=== PATIENT | male | born 1970 | race Caucasian/White ===

== ENCOUNTER 2016-12-08 01:48 | Emergency (ER) | payer OTHER ==
--- NOTE | 2016-12-08 02:15 | ED.PDOC ---
History of Present Illness - General Chief Complaint: Cardiovascular Problem Stated Complaint: chest pain Time Seen by Provider: 12/08/16 01:59 Source: patient, RN notes reviewed, Vital Signs reviewed, EMS Exam Limitations: intoxication - History of Present Illness Initial Comments: Patient comes in with c/o chest pain that "hurts pretty bad" for several weeks. The pain is worsened by swallowing and deep breathing. Pain goes from his L chest to his L arm and down his whole L side. + EtoH use today. Timing/Duration: constant - for weeks Severity/Quality: severe, sharp Location: substernal Chest Pain Radiation: other - L arm and L leg, "whole left side" Activities at Onset: emotional stress - going through a divorce Prior Chest Pain/Cardiac Workup: no prior cardiac workup Improving Factors: nothing Worsening Factors: other - swallowing and deep breathing Nitro Today/Relief: no nitro taken today Aspirin Treatment Today: no aspirin today Associated Symptoms: denies symptoms Allergies/Adverse Reactions: Allergies NO KNOWN ALLERGY Allergy (Verified 12/08/16 02:10) Home Medications: Ambulatory Orders Nexium 40 12/08/16 Pantoprazole Tablet [Protonix] 40 mg PO ACBK #30 tab 12/08/16 Review of Systems - Review of Systems Constitutional: States: no symptoms reported Respiratory: States: no symptoms reported Cardiology: States: see HPI, chest pain Gastrointestinal/Abdominal: States: no symptoms reported Musculoskeletal: States: no symptoms reported Skin: States: no symptoms reported Neurological: States: no symptoms reported All other Systems: No Change from Baseline Past Medical History (General) - Patient Medical History Hx Seizures: No Hx Stroke: No Hx Dementia: No Hx Asthma: No Hx of COPD: No Hx Cardiac Disorders: No Hx Congestive Heart Failure: No Hx Pacemaker: No Hx Hypertension: No Hx Thyroid Disease: No Hx Diabetes: No Hx Gastroesophageal Reflux: No Hx Renal Disease: No Hx of HIV: No Hx MRSA: Yes - Arm 2004; Leg 2009 Surgical History: appendectomy - Vaccination History Hx Tetanus, Diphtheria Vaccination: - unknown Hx Influenza Vaccination: No Hx Pneumococcal Vaccination: No - Social History Hx Tobacco Use: No Hx Alcohol Use: Yes Hx Substance Use: No Hx Substance Use Treatment: No Hx Depression: No Hx Physical Abuse: No Hx Emotional Abuse: No - Female History Patient : No Family Medical History - Family History Mother Family History: Unknown Living Status: Physical Exam - Physical Exam General Appearance: Restless, Other - Intoxicated Neck: supple, normal inspection Respiratory: lungs clear, normal breath sounds, no respiratory distress, no accessory muscle use, other - Pain with deep breath and with palpation of anterior chest Cardiovascular/Chest: regular rate, rhythm, no gallop, no JVD, no murmur Gastrointestinal/Abdominal: normal bowel sounds, non tender, soft, no organomegaly, no pulsatile mass Neurologic: other - Intoxicated Skin Exam: normal color, warm/dry Comments: Vital Signs 12/08/16 12/08/16 01:50 02:04 Temperature 97.5 F L Pulse Rate 89 Pulse Rate [ 89 89 monitor] Respiratory 12 12 Rate Blood Pressure 124/90 [Right Arm] O2 Sat by Pulse 95 Oximetry Progress - Progress Progress: 12/08/16 05:59 2 sets of cardiac enzymes are normal. Suspect chest pain is esophageal since swallowing makes it worse. When up to bath room he ripped out his IV. Banana bag given already so will not restart IV. Will give Protonix 40mg PO here. 12/08/16 06:04 Patient is much more alert. Reports he is feeling much better Will plan to d/c home with Rx for Protonix and instructions to stop drinking alcohol and follow up with GI. - Results/Orders Results/Orders: Laboratory Tests 12/08/16 12/08/16 12/08/16 02:00 02:00 02:00 WBC 7.5 RBC 4.77 Hgb 13.7 L Hct 40.8 L MCV 85.6 MCH 28.7 MCHC 33.6 RDW 14.0 Plt Count 383 MPV 7.4 Absolute Neuts (auto) 4.70 Absolute Lymphs (auto) 1.90 Absolute Monos (auto) 0.50 Absolute Eos (auto) 0.40 Absolute Basos (auto) 0.10 Neutrophils % 62.5 Lymphocytes % 25.9 Monocytes % 6.0 Eosinophils % 4.7 Basophils % 0.9 Sodium 138 Potassium 4.1 Chloride 107 Carbon Dioxide 22 Anion Gap 13.1 BUN 10 Creatinine 0.92 BUN/Creatinine Ratio 10.9 Random Glucose 92 Serum Osmolality 274.4 L Calcium 8.7 Total Bilirubin 0.3 AST 28 ALT 17 Alkaline Phosphatase 59 Creatine Kinase 352 H* CK-MB (CK-2) 4.1 CK-MB (CK-2) % Not Reportable Troponin I < 0.02 Serum Total Protein 7.6 Albumin 4.4 Globulin 3.2 Albumin/Globulin Ratio 1.4 Ethyl Alcohol 258.20 H* 12/08/16 12/08/16 04:55 04:55 WBC RBC Hgb Hct MCV MCH MCHC RDW Plt Count MPV Absolute Neuts (auto) Absolute Lymphs (auto) Absolute Monos (auto) Absolute Eos (auto) Absolute Basos (auto) Neutrophils % Lymphocytes % Monocytes % Eosinophils % Basophils % Sodium Potassium Chloride Carbon Dioxide Anion Gap BUN Creatinine BUN/Creatinine Ratio Random Glucose Serum Osmolality Calcium Total Bilirubin AST ALT Alkaline Phosphatase Creatine Kinase 299 H* CK-MB (CK-2) 3.9 CK-MB (CK-2) % 1.30 Troponin I < 0.02 Serum Total Protein Albumin Globulin Albumin/Globulin Ratio Ethyl Alcohol 201.60 H* - EKG/XRAY/CT EKG: Sinus, nonspecific ST T wave Chg Comments: Rate 87 bpm XRAY: chest - No acute process per Rad Departure - Departure Clinical Impression: Alcohol abuse Chest pain Qualifiers: Chest pain type: unspecified Qualified Code(s): R07.9 - Chest pain, unspecified Time of Disposition: 06:08 Disposition: Discharge to Home or Self Care Condition: Fair Departure Forms: ED Discharge - Pt. Copy, Patient Portal Self Enrollment Instructions: DI for Chest Pain, DI for Alcohol Abuse and Alcoholism Diet: resume usual diet Activity: increase activity as tolerated Referrals: Rajinder Rodrigues MD [Consulting Staff] - 1-2 Weeks Prescriptions: Pantoprazole Tablet [Protonix] 40 mg PO ACBK #30 tab Home Medications: Ambulatory Orders Nexium 40 12/08/16 Pantoprazole Tablet [Protonix] 40 mg PO ACBK #30 tab 12/08/16 Additional Instructions: Follow up with your PCP within 1 week Take Protonix daily STOP DRINKING ALCOHOL!!!
[2016-12-08] MEDS ORDERED: SODIUM CHLORIDE 0.9% 1000ML 1,000 ML ONE (02:18)
[2016-12-08] MEDS ORDERED: MULTIPLE VITAMIN 10 ML VIAL ONE (02:18)
[2016-12-08] MEDS ORDERED: THIAMINE HCL INJ 100 MG/ML VIAL ONE (02:18)
[2016-12-08] MEDS ORDERED: MULTIPLE VITAMIN INJ 10 ML, THIAMINE HCL INJ 100 MG in SODIUM CHLORIDE 0.9% 1000ML 1,00... IVS SCH (02:30)
--- NOTE | 2016-12-08 03:46 | RAD ---
EXAM DESCRIPTION: Chest,1 View CLINICAL HISTORY: chest pain COMPARISON: 07/17/2014 FINDINGS: Single frontal view of the chest. The cardiomediastinal silhouette has normal size and contour. No consolidation, pneumothorax, or pleural effusion. No displaced rib fractures identified. Leads overlie the chest. Upper abdominal soft tissues are unremarkable. IMPRESSION: 1. No acute pulmonary process identified. Electronically signed by: Robbi Diaz 12/08/2016 3:44 AM CDT
[2016-12-08 03:50] VITALS: TEMP 97.5
[2016-12-08 05:25] VITALS: BP 107/62; O2SAT 97
[2016-12-08] MEDS ORDERED: PANTOPRAZOLE SODIUM TAB 40 MG PO ONE (06:03)
== END 2016-12-08 06:28 | disposition home or self-care (01) ==
LOC: ER 01:48
DX: R07.9 Chest pain, unspecified (principal); F10.129 Alcohol abuse with intoxication, unspecified; Y90.7 Blood alcohol level of 200-239 mg/100 ml
CPT/HCPCS: 36415; 71010; 80053; 80320; 82550; 82553; 84484; 85025; 93005; J3411; J7030

== ENCOUNTER 2017-10-01 18:30 | Observation (INO) | payer OTHER ==
[2017-10-01] MEDS ORDERED: ASPIRIN TABLET 325 MG TAB PO ONE (18:49)
[2017-10-01] MEDS ORDERED: NITROGLYCERIN 0.4 MG 25 EA TAB SL ONE (18:49)
--- NOTE | 2017-10-01 19:08 | RAD ---
EXAM DESCRIPTION: Chest,1 View CLINICAL HISTORY:47 years Male, CHEST PAIN Comparison: December 08, 2016 FINDINGS: No focal lung consolidation. No pleural effusion. No pneumothorax. Cardiac and mediastinal silhouette is unremarkable. No acute osseous abnormality. Soft tissues are unremarkable. IMPRESSION: No acute findings. No focal lung consolidation. Electronically signed by: Sreedhar Gonzalez MD 10/01/2017 7:07 PM CDT
[2017-10-01] MEDS ORDERED: SUCRALFATE 1 GM/10 ML 1 GM UD PO ONE (19:50)
[2017-10-01] MEDS ORDERED: ALUM & MAG HYDROX-SIMETHICONE 30 ML, LIDOCAINE VISCOUS 2% 15 ML PO ONE ×2 (19:50)
[2017-10-01] MEDS ORDERED: PANTOPRAZOLE INJECTION 40 MG in SODIUM CHLORIDE 0.9% 100ML 100 ML IVPB ONE (19:50)
[2017-10-01] MEDS ORDERED: MULTIPLE VITAMIN INJ 10 ML, THIAMINE HCL INJ 100 MG in SODIUM CHLORIDE 0.9% 1000ML 1,00... IVS ONE (19:50)
[2017-10-01] MEDS ORDERED: LIDOCAINE HCL 2% (MOUTH-THROAT) 15 ML UD ONE (19:53)
[2017-10-01] MEDS ORDERED: PANTOPRAZOLE SODIUM IV 40 MG VIAL ONE (19:53)
[2017-10-01] MEDS ORDERED: ALUM & MAG HYDROX-SIMETHICONE 30 ML UD ONE (19:53)
[2017-10-01] MEDS ORDERED: SODIUM CHLORIDE 0.9% 100ML 100 ML IVPB ONE (19:54)
--- NOTE | 2017-10-01 20:02 | ED.PDOC ---
History of Present Illness - General Chief Complaint: Chest Pain/CA Stated Complaint: chest pain Time Seen by Provider: 10/01/17 18:59 Source: patient Exam Limitations: no limitations - History of Present Illness Initial Comments: Asim Cote 47 y/o male stated that he had been having intermittent sharp left sided chest pains for 2-3 days raditing to left side of hi abdomen ,left flank and also been dizzy.No diaphoresis,no SOB ,no N/V Timing/Duration: days - 2-3, intermittent Severity: moderate Location: central Activities at Onset: activity, rest Prior Chest Pain/Cardiac Workup: other - had been seen for chest pain ER 08 Dec 2016 Nitro Today/Relief: 0.4 mg x 1, provided by ED, complete relief Aspirin Treatment Today: 325 mg x 1, provided by ED Associated Symptoms: other - see hpi Allergies/Adverse Reactions: Allergies NO KNOWN ALLERGY Allergy (Verified 12/08/16 02:10) Home Medications: Ambulatory Orders Nexium 40 12/08/16 Pantoprazole Tablet [Protonix] 40 mg PO ACBK #30 tab 12/08/16 Review of Systems - Review of Systems Constitutional: States: no symptoms reported EENTM: States: other - ringin in ear ;decrease hearing right ear Respiratory: States: no symptoms reported Cardiology: States: see HPI Gastrointestinal/Abdominal: States: no symptoms reported Genitourinary: States: no symptoms reported Musculoskeletal: States: no symptoms reported Skin: States: no symptoms reported Past Medical History (General) - Patient Medical History Hx Seizures: No Hx Stroke: No Hx Dementia: No Hx Asthma: No Hx of COPD: No Hx Cardiac Disorders: No Hx Congestive Heart Failure: No Hx Pacemaker: No Hx Hypertension: No Hx Thyroid Disease: No Hx Diabetes: No Hx Gastroesophageal Reflux: No Hx Renal Disease: No Hx of HIV: No Hx MRSA: Yes - Arm 2004; Leg 2009 Surgical History: appendectomy - Vaccination History Hx Tetanus, Diphtheria Vaccination: - unknown Hx Influenza Vaccination: No Hx Pneumococcal Vaccination: No - Social History Hx Tobacco Use: No Hx Chewing Tobacco Use: Yes Hx Alcohol Use: Yes - 4-5 beers/day Hx Substance Use: No Hx Substance Use Treatment: No Hx Depression: No Hx Physical Abuse: No Hx Emotional Abuse: No - Female History Patient : No Family Medical History - Family History Mother Family History: Unknown Living Status: Hx Cardiac Disease: Yes - dad Hx Family Cancer: Yes - dad-liver Physical Exam - Physical Exam General Appearance: Alert, Comfortable, No apparent distress Eyes, Ears, Nose, Throat Exam: normal ENT inspection Neck: non-tender, full range of motion, supple Respiratory: chest non-tender, lungs clear, normal breath sounds Cardiovascular/Chest: normal peripheral pulses, regular rate, rhythm, no murmur Peripheral Pulses: radial,right: 2+, radial,left: 2+ Gastrointestinal/Abdominal: normal bowel sounds, non tender, soft, no organomegaly Extremity: no pedal edema, no calf tenderness Neurologic: alert, oriented x 3, other - tremors both hands Skin Exam: normal color, warm/dry Progress - Progress Progress: 10/01/17 20:06 10/01/17 18:49 IV Care:Saline Lock per Protoc QSHIFT Telemetry .ONCE EKG Stat Pulse Ox Stat 10/01/17 19:00 URINE DRUG SCREEN, 7 ASSAY Stat 10/01/17 19:50 Multiple Vitamin Inj [MVI Injectable] 10 ml Thiamine HCl Inj 100 mg Sodium Chloride 0.9% 1000ML [Ns 1000 ml] 1,000 ml IVS ONCE 10/01/17 19:59 LIPASE Stat Laboratory Results - last 24 hr 10/01/17 10/01/17 18:49 19:40 WBC 7.8 RBC 4.76 Hgb 13.7 L Hct 41.0 L MCV 86.2 MCH 28.7 MCHC 33.5 RDW 13.7 Plt Count 327 MPV 7.6 Absolute Neuts (auto) 5.40 Absolute Lymphs (auto) 1.50 Absolute Monos (auto) 0.50 Absolute Eos (auto) 0.40 Absolute Basos (auto) 0.00 Neutrophils % 68.9 Lymphocytes % 19.0 L Monocytes % 7.0 Eosinophils % 4.7 Basophils % 0.4 PT 10.2 INR 1.02 PTT (SP) 25.6 Sodium 140 Potassium 4.0 Chloride 106 Carbon Dioxide 24 Anion Gap 14.0 BUN 17 Creatinine 0.91 BUN/Creatinine Ratio 18.7 Random Glucose 107 H Serum Osmolality 281.4 Calcium 9.4 Magnesium 1.9 Creatine Kinase 184 H CK-MB (CK-2) 2.8 CK-MB (CK-2) % Not Reportable Troponin I < 0.02 B-Natriuretic Peptide 8.5 Ethyl Alcohol 22.10 - Results/Orders Results/Orders: Laboratory Tests 10/01/17 10/01/17 10/01/17 18:49 19:40 19:59 WBC 7.8 RBC 4.76 Hgb 13.7 L Hct 41.0 L MCV 86.2 MCH 28.7 MCHC 33.5 RDW 13.7 Plt Count 327 MPV 7.6 Absolute Neuts (auto) 5.40 Absolute Lymphs (auto) 1.50 Absolute Monos (auto) 0.50 Absolute Eos (auto) 0.40 Absolute Basos (auto) 0.00 Neutrophils % 68.9 Lymphocytes % 19.0 L Monocytes % 7.0 Eosinophils % 4.7 Basophils % 0.4 PT 10.2 INR 1.02 PTT (SP) 25.6 Sodium 140 Potassium 4.0 Chloride 106 Carbon Dioxide 24 Anion Gap 14.0 BUN 17 Creatinine 0.91 BUN/Creatinine Ratio 18.7 Random Glucose 107 H Serum Osmolality 281.4 Calcium 9.4 Magnesium 1.9 Creatine Kinase 184 H CK-MB (CK-2) 2.8 CK-MB (CK-2) % Not Reportable Troponin I < 0.02 B-Natriuretic Peptide 8.5 Lipase 28 Ethyl Alcohol 22.10 10/01/17 20:27 WBC RBC Hgb Hct MCV MCH MCHC RDW Plt Count MPV Absolute Neuts (auto) Absolute Lymphs (auto) Absolute Monos (auto) Absolute Eos (auto) Absolute Basos (auto) Neutrophils % Lymphocytes % Monocytes % Eosinophils % Basophils % PT INR PTT (SP) Sodium Potassium Chloride Carbon Dioxide Anion Gap BUN Creatinine BUN/Creatinine Ratio Random Glucose Serum Osmolality Calcium Magnesium Creatine Kinase CK-MB (CK-2) CK-MB (CK-2) % Troponin I < 0.02 B-Natriuretic Peptide Lipase Ethyl Alcohol - EKG/XRAY/CT EKG: Sinus, nonspecific ST T wave Chg Comments: HR-90 XRAY: chest - no acute abnormality - Additional EKG/XRAY/Consults EKG #2: Sinus, no ST T wave changes Comments: HR-68 Departure - Departure Clinical Impression: Alcoholism, chronic Chest pain Qualifiers: Chest pain type: unspecified Qualified Code(s): R07.9 - Chest pain, unspecified Time of Disposition: 21:41 Disposition: Admit Patient Condition: Fair Departure Forms: Patient Portal Self Enrollment Home Medications: Ambulatory Orders Nexium 40 12/08/16 Pantoprazole Tablet [Protonix] 40 mg PO ACBK #30 tab 12/08/16 Decision To Admit - Decistion To Admit Decision to Admit Reason: Admit from ER Decision to Admit Date: 10/01/17 - D/W Afsaneh Rincon-KAIN/Hospitalist Decision to Admit Time: 21:38
[2017-10-01] MEDS ORDERED: THIAMINE HCL INJ 100 MG/ML VIAL ONE (20:07)
[2017-10-01] MEDS ORDERED: SODIUM CHLORIDE 0.9% 1000ML 1,000 ML ONE (20:07)
[2017-10-01] MEDS ORDERED: MULTIPLE VITAMIN 10 ML VIAL ONE (20:08)
[2017-10-01] MEDS ORDERED: MORPHINE SULFATE INJ 10 MG/ML VIAL IV PRN (22:31)
[2017-10-01] MEDS ORDERED: ACETAMINOPHEN 325 MG TAB PO PRN (22:31)
[2017-10-01] MEDS ORDERED: NITROGLYCERIN 0.4 MG 25 EA TAB SL PRN (22:31)
[2017-10-01] MEDS ORDERED: SODIUM CHLORIDE 0.9% (FLUSH) 10 ML SYG IV PRN (22:31)
[2017-10-01] MEDS ORDERED: ENOXAPARIN SODIUM 40 MG/0.4 ML SYG SUBCU SCH (23:00)
[2017-10-01] MEDS ORDERED: IV SET AND CAP CHANGE INJ INJ SCH (23:00)
[2017-10-02] MEDS ORDERED: PANTOPRAZOLE SODIUM TAB 40 MG PO SCH (06:30)
[2017-10-02] MEDS ORDERED: SODIUM CHLORIDE 0.9% (FLUSH) 10 ML SYG IV SCH (09:00)
[2017-10-02] MEDS ORDERED: ASPIRIN TABLET 325 MG TAB PO SCH (09:00)
[2017-10-02 09:32] VITALS: BP 104/67; TEMP 98.1; O2SAT 97
--- NOTE | 2017-10-02 09:57 | SSS ---
SUPERVISING PHYSICIAN: Sanya Etienne MD CHIEF COMPLAINT: Chest pain. HISTORY OF PRESENT ILLNESS: This is a 47-year-old male patient with no history of cardiac disease who came to the Emergency Room due to having intermittent left sided chest pain which radiated left laterally. He said it had been going on for the past 2 to 3 days. It is not associated with any significant event. He states he does get short of breath when he works sometimes. Anyhow, in the Emergency Room, he had EKG and cardiac enzymes. Those were negative. He was referred for admission for chest pain rule out and serial cardiac enzymes remained negative along with normal EKG. PAST MEDICAL HISTORY: Negative. PAST SURGICAL HISTORY: 1. Left arm surgery. 2. Left great toe surgery. 3. Tonsillectomy. CURRENT MEDICATIONS: None. ALLERGIES: NO KNOWN DRUG ALLERGIES. FAMILY HISTORY: He states his father had some heart disease and some cancer. His mother had some cancer. SOCIAL HISTORY: The patient dips two cans of snuff per day and drinks a six- pack of beer daily. No illegal drugs. REVIEW OF SYSTEMS: CONSTITUTIONAL: No fever or chills. No recent weight loss or weight gain. HEENT: No headaches, vision changes, ear pain, nasal congestion or throat pain. RESPIRATORY: No cough, hemoptysis or pleuritic chest pain. CARDIOVASCULAR: Positive for chest pain. No palpitations or peripheral edema. GASTROINTESTINAL: No nausea, vomiting, diarrhea, constipation or abdominal pain. GENITOURINARY: No dysuria, frequency or flank pain. HEMATOLOGIC: No easy bruising and no transfusion reaction. MUSCULOSKELETAL: No muscle pain or cramps, joint pain or joint swelling. ENDOCRINE: No polydipsia, polyuria or polyphagia. No heat or cold intolerance. NEUROLOGIC: Positive for some dizziness. No syncope, paresthesias or seizures. PHYSICAL EXAMINATION: VITAL SIGNS: Blood pressure 102/64. Heart rate 70. Respiratory rate 16. Temperature 97.6. Oxygen saturation 98%. GENERAL: Mr. Cote is a 47-year-old male patient who is in no active distress currently. HEENT: Normocephalic, atraumatic. Pupils are equal and reactive. No nasal drainage. Throat with moist mucosa. NECK: Supple. Midline trachea. No jugular venous distention. CHEST: Symmetrical with equal rise and fall of the chest with inspiration and expiration. Lung sounds are clear to auscultation bilaterally. CARDIOVASCULAR: Regular rate and rhythm. Normal S1, S2. ABDOMEN: Soft. Positive bowel sounds. GENITOURINARY: Deferred. EXTREMITIES: Lower extremities with no edema. NEUROLOGIC: The patient is alert and oriented. No focal deficits. DIAGNOSTICS: Chest x-ray shows no acute cardiopulmonary process. LABORATORY: Normal white count. Hemoglobin 12.9, hematocrit 38.8, platelet count 289. Coag studies normal. Chemistry unremarkable. ASSESSMENT: 1. Chest pain, rule out acute coronary syndrome. 2. Nicotine dependency. 3. ETOH abuse. PLAN: Due to the fact that his cardiac workup so far is negative, the patient will be discharged today. I will recommend he followup with a primary care physician, which he does not have. I have stated we can get him an appointment with a clinic here in [facility] and he agreed to this. I recommended he have a cardiac workup as an outpatient likely to include a stress test at some point. He verbalized understanding of this. Therefore, he will be discharged today with no new medications or new diet recommendations. #[id number] [facility]
[2017-10-02] MEDS ORDERED: ENOXAPARIN SODIUM 40 MG/0.4 ML SYG SUBCU SCH (21:00)
== END 2017-10-02 11:16 | disposition home or self-care (01) ==
LOC: ER 18:30 → MS 22:05 → INTOOBSV 22:05
PROVIDERS: ADMIT Nurse Practitioner Acute Care; ATTEND Nurse Practitioner
DX: R07.89 Other chest pain (principal); F17.220 Nicotine dependence, chewing tobacco, uncomplicated; F10.10 Alcohol abuse, uncomplicated; R42 Dizziness and giddiness; Z82.49 Family history of ischemic heart disease and other diseases of the circulatory system
CPT/HCPCS: 96372; J7030; J3411; J1650; J7050; 82553 ×3; 80053; 80307; 80061; 36415; 82550 ×3; 80048; 85025 ×2; 85730; 85610; 84484 ×4; 80076; 80320; 82977; 83690; 83880; 71045; 94760; 99285; 93005 ×3; G0378; 96365; 96367

== ENCOUNTER 2017-12-05 03:08 | Emergency (ER) | payer OTHER ==
[2017-12-05] MEDS ORDERED: LIDOCAINE 1% 10 ML VIAL INJ ONE (03:26)
[2017-12-05 03:28] VITALS: TEMP 97.1
--- NOTE | 2017-12-05 03:52 | ED.PDOC ---
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 the gate hit The right side of his chest as well as his face. It knocked out his upper central incisors out. They're broken off flush at the gum. They apparently had significant decay and them to start with. Additionally he did sustain a three-quarter inch laceration approximately 1/2 inch above the Compa border on the right upper lip. It is a through and through laceration. It is fairly dirty.he was not down for approximately 30 seconds. He subsequently got back up and finished working for a couple of hours. He is here due to the laceration. No neck pain. No altered mental status. No shortness of breath. He does have some mild right anterior chest wall discomfort but no obvious bruising crepitus or deformity. Breath sounds are equal. No splinting. Timing/Duration: 4-6 hours Severity: moderate Improving Factors: nothing Worsening Factors: nothing Associated Symptoms: denies symptoms Allergies/Adverse Reactions: Allergies NO KNOWN ALLERGY Allergy (Verified 12/08/16 02:10) Home Medications: Ambulatory Orders Cephalexin Monohydrate [Keflex] 500 mg PO Q8H #30 cap 12/05/17 Tramadol HCl 50 mg PO Q8HR PRN #20 tab 12/05/17 Review of Systems - Review of Systems Constitutional: States: malaise - mild EENTM: States: see HPI Respiratory: States: no symptoms reported Cardiology: States: see HPI, chest pain Gastrointestinal/Abdominal: States: no symptoms reported Genitourinary: States: no symptoms reported Musculoskeletal: States: no symptoms reported Skin: States: no symptoms reported Neurological: States: no symptoms reported Endocrine: States: no symptoms reported All other Systems: No Change from Baseline Past Medical History (General) - Patient Medical History Hx Seizures: Yes - unable to tell when Hx Stroke: No Hx Dementia: No Hx Asthma: No Hx of COPD: No Hx Cardiac Disorders: No Hx Congestive Heart Failure: No Hx Pacemaker: No Hx Hypertension: No Hx Thyroid Disease: No Hx Diabetes: No Hx Gastroesophageal Reflux: No Hx Renal Disease: No Hx of HIV: No Hx MRSA: No - Vaccination History Hx Tetanus, Diphtheria Vaccination: - unknown Hx Influenza Vaccination: No Hx Pneumococcal Vaccination: No - Social History Hx Tobacco Use: Yes Hx Chewing Tobacco Use: Yes Hx Alcohol Use: Yes Hx Substance Use: No Hx Substance Use Treatment: No Hx Depression: No Hx Physical Abuse: No Hx Emotional Abuse: No - Female History Patient : No Family Medical History - Family History Mother Family History: Unknown Living Status: Hx Cardiac Disease: Yes - dad Hx Family Cancer: Yes - dad-liver Physical Exam - Physical Exam General Appearance: Alert, Anxious, No apparent distress Eye Exam: bilateral normal Ears, Nose, Throat: hearing grossly normal, other - he does have some mild swelling over the right side of the nasal bridge. No septal deviation. No active bleeding. Missing upper front teeth as per history of present illness. Very poor dentition in general. Neck: full range of motion, supple Respiratory: lungs clear, normal breath sounds, no respiratory distress, no accessory muscle use Cardiovascular/Chest: normal peripheral pulses, regular rate, rhythm, no edema Peripheral Pulses: radial,right: 2+, radial,left: 2+, dorsalis pedis,right: 2+, dorsalis pedis,left: 2+ Gastrointestinal/Abdominal: non tender, soft Rectal Exam: deferred Extremity: normal range of motion, non-tender, normal inspection, no pedal edema , no calf tenderness, normal capillary refill Neurologic: museum informatics specialist II-XII nml as tested - he is very anxious, alert, oriented x 3 Skin Exam: normal color - laceration as above. Comments: Vital Signs - 24 hr 12/05/17 03:23 Temperature 97.1 F L Pulse Rate [ 86 Right] Respiratory 16 Rate Blood Pressure 159/56 [Right Arm] O2 Sat by Pulse 97 Oximetry Progress - Progress Progress: 12/05/17 03:54 the patient's a 47-year-old male that was hit in the face with a cattle gate. He has fractured teeth. He will need to see a dentist for these. He has a through and through upper lip laceration that was repaired with 3 simple sutures of 4-0 Ethilon. These will need to come out and 8-10 days. He also has a concussion. He does need to avoid overheating in the next week. He needs to keep himself well-hydrated. Concussion precautions have been given. he needs to follow-up with his primary care doctor next week. ER warnings were given for any worsening. Procedure: Risks and benefits of repair explained. Patient agrees to proceed. Wound is cleaned with hydrogen peroxide and gauze copiously. Xylocaine without epinephrine 3 cc was used for local anesthetic. 3 simple sutures of 4-0 Ethilon were placed externally. The inner aspect of the wound should heal well on its own. Estimated blood loss is probably 10 cc. He may end up with a little area of numbness to the lip just below the laceration.. Departure - Departure Clinical Impression: Concussion Qualifiers: Encounter type: initial encounter Loss of consciousness presence/duration: with LOC of 30 min or less Qualified Code(s): S06.0X1A - Concussion with loss of consciousness of 30 minutes or less, initial encounter Laceration of lip Qualifiers: Encounter type: initial encounter Qualified Code(s): S01.511A - Laceration without foreign body of lip, initial encounter Disposition: Discharge to Home or Self Care Condition: Fair Departure Forms: ED Discharge - Pt. Copy, Patient Portal Self Enrollment Instructions: DI for Concussion, Laceration Repair With Stitches (DC) Diet: regular diet Activity: increase activity as tolerated - avoid overheating Prescriptions: Tramadol HCl 50 mg PO Q8HR PRN #20 tab PRN Reason: Moderate Pain Cephalexin Monohydrate [Keflex] 500 mg PO Q8H #30 cap Home Medications: Ambulatory Orders Cephalexin Monohydrate [Keflex] 500 mg PO Q8H #30 cap 12/05/17 Tramadol HCl 50 mg PO Q8HR PRN #20 tab 12/05/17 Additional Instructions: the patient's a 47-year-old male that was hit in the face with a cattle gate. He has fractured teeth. He will need to see a dentist for these. He has a through and through upper lip laceration that was repaired with 3 simple sutures of 4-0 Ethilon. These will need to come out and 8-10 days. He also has a concussion. He does need to avoid overheating in the next week. He needs to keep himself well-hydrated. Concussion precautions have been given. he needs to follow-up with his primary care doctor next week. ER warnings were given for any worsening.
[2017-12-05] MEDS ORDERED: HYDROcodone 7.5MG/APAP 325MG 1 EA TAB PO ONE (03:53)
[2017-12-05] MEDS ORDERED: TETANUS,DIPHTHERIA,PERTUSSIS 1 EA SYG IM ONE (03:53)
[2017-12-05] MEDS ORDERED: CEPHALEXIN MONOHYDRATE 500 MG CAP PO ONE (03:53)
[2017-12-05] MEDS ORDERED: NEOMYCIN-BACITRACIN-POLYMYXIN 0.9 GM UD TOP ONE (04:07)
[2017-12-05 04:12] VITALS: BP 139/82
[2017-12-05 04:13] VITALS: O2SAT 96
== END 2017-12-05 04:13 | disposition home or self-care (01) ==
LOC: ER 03:08
DX: S06.0X1A Concussion with loss of consciousness of 30 minutes or less, initial encounter (principal); S01.511A Laceration without foreign body of lip, initial encounter; S02.5XXA Fracture of tooth (traumatic), initial encounter for closed fracture; Z23 Encounter for immunization; W22.8XXA Striking against or struck by other objects, initial encounter; Y93.89 Activity, other specified; Z87.891 Personal history of nicotine dependence

== ENCOUNTER 2018-10-27 22:30 | Emergency (ER) | payer OTHER ==
[2018-10-27 22:53] VITALS: TEMP 97.6
[2018-10-27] MEDS: SODIUM CHLORIDE 0.9% 1000ML 1,000 ML IVS PRN (22:58)
[2018-10-27] MEDS ORDERED: THIAMINE HCL INJ 100 MG/ML VIAL ONE ×2 (23:16→23:25)
[2018-10-27] MEDS ORDERED: SODIUM CHLORIDE 0.9% 1000ML 1,000 ML ONE ×2 (23:16→23:24)
--- NOTE | 2018-10-27 23:17 | ED.PDOC ---
History of Present Illness - History of Present Illness Initial Comments: 48 yo M PMH Alcoholism presents to ED Fiance at bedside brought in by EMS for seizure like activity. Per Fiance pt has been 'drinking alcohol all day and took some blue pill' Pt. belligerent and verbally abusive refusing to answer questions and refusing exam. IV heplock to left forearm. Per fiance no fever chills nausea vomiting diarrhea chest pain sob diaphoresis. No change in diet rest bowel or bladder but several episodes of 'shaking' Unable to donohue anymore reliable history. <Arnaldo Gutierrez - Last Filed: 10/28/18 06:56> <Olayinka Kaur - Last Filed: 10/28/18 07:50> - General Chief Complaint: Neuro Symptoms/Deficits Stated Complaint: intoxicated having seizure like activity Time Seen by Provider: 10/27/18 23:04 - History of Present Illness Allergies/Adverse Reactions: Allergies NO KNOWN ALLERGY Allergy (Verified 12/08/16 02:10) Home Medications: Ambulatory Orders Cephalexin Monohydrate [Keflex] 500 mg PO Q8H #30 cap 12/05/17 Tramadol HCl 50 mg PO Q8HR PRN #20 tab 12/05/17 Review of Systems - Review of Systems Unable to Obtain Due To: condition, other - Acute Intoxication <Arnaldo Gutierrez - Last Filed: 10/28/18 06:56> Past Medical History (General) - Patient Medical History Hx Seizures: Yes - "heat seizure" Hx Stroke: No Hx Dementia: No Hx Asthma: No Hx of COPD: No Hx Cardiac Disorders: Yes - "bad heart" Hx Congestive Heart Failure: No Hx Pacemaker: No Hx Hypertension: No Hx Thyroid Disease: No Hx Diabetes: No Hx Gastroesophageal Reflux: No Hx Renal Disease: No Hx of HIV: No Hx MRSA: No Surgical History: other - Vaccination History Hx Tetanus, Diphtheria Vaccination: - unknown Hx Influenza Vaccination: No Hx Pneumococcal Vaccination: No - Social History Hx Tobacco Use: Yes Hx Chewing Tobacco Use: Yes Hx Alcohol Use: Yes Hx Substance Use: No Hx Substance Use Treatment: No Hx Depression: No Hx Physical Abuse: No Hx Emotional Abuse: No - Female History Patient : No <Arnaldo Gutierrez - Last Filed: 10/28/18 06:56> Family Medical History - Family History Mother Family History: Unknown Living Status: Hx Cardiac Disease: Yes - dad Hx Family Cancer: Yes - dad-liver <Arnaldo Gutierrez - Last Filed: 10/28/18 06:56> Physical Exam - Physical Exam General Appearance: Other - Intoxicated Eye Exam: bilateral normal Ears, Nose, Throat: normal ENT inspection Neck: non-tender, full range of motion Respiratory: other - refused Cardiovascular/Chest: other - refused Gastrointestinal/Abdominal: other - refused Extremity: normal range of motion, normal inspection Neurologic: other - Intoxicated Skin Exam: normal color Lymphatic: other - refused Comments: Acutely intoxicated refusing exam and non participatory <Arnaldo Gutierrez - Last Filed: 10/28/18 06:56> Progress - Progress Progress: 10/27/18 23:19 A/P-Acute Alcohol Intoxication 1.seizure precautions fall precaution fluids banana bag ativan pulse of head of bed 30 degrees cbc cmp alcohol salicylate acetaminophen utox no apparent or obvious sign of injury or bleeding from limited assessment, will observe and reassess 10/27/18 23:21 10/27/18 23:22 10/28/18 02:43 Laboratory Tests 10/27/18 10/27/18 10/27/18 22:42 22:42 22:42 WBC 8.1 RBC 4.64 L Hgb 13.2 L Hct 39.0 L MCV 84.2 MCH 28.5 MCHC 33.9 RDW 13.2 Plt Count 327 MPV 8.1 Absolute Neuts (auto) 4.70 Absolute Lymphs (auto) 2.40 Absolute Monos (auto) 0.50 Absolute Eos (auto) 0.40 Absolute Basos (auto) 0.00 Neutrophils % 58.3 Lymphocytes % 30.2 Monocytes % 5.8 Eosinophils % 5.1 H Basophils % 0.6 Sodium Potassium Chloride Carbon Dioxide Anion Gap BUN Creatinine BUN/Creatinine Ratio Random Glucose Serum Osmolality Calcium Total Bilirubin AST ALT Alkaline Phosphatase Serum Total Protein Albumin Globulin Albumin/Globulin Ratio Urine Color Urine Appearance Urine pH Ur Specific [place] Urine Protein Urine Glucose (UA) Urine Ketones Urine Blood Urine Nitrite Urine Bilirubin Urine Urobilinogen Ur Leukocyte Esterase Urine RBC Urine WBC Ur Epithelial Cells Urine Bacteria Salicylates Urine Opiates Screen Negative Acetaminophen Urine Barbiturates Negative Ur Phencyclidine Scrn Negative U Amphetamin/Meth Scrn Negative U Benzodiazepines Scrn Negative U Cocaine Metab Screen Negative U Cannabinoids Screen Negative Ethyl Alcohol 267.90 H* 10/27/18 10/27/18 23:00 23:01 WBC RBC Hgb Hct MCV MCH MCHC RDW Plt Count MPV Absolute Neuts (auto) Absolute Lymphs (auto) Absolute Monos (auto) Absolute Eos (auto) Absolute Basos (auto) Neutrophils % Lymphocytes % Monocytes % Eosinophils % Basophils % Sodium 138 Potassium 3.8 Chloride 108 Carbon Dioxide 20 L Anion Gap 13.8 BUN 14 Creatinine 0.97 BUN/Creatinine Ratio 14.4 Random Glucose 95 Serum Osmolality 276.0 Calcium 9.0 Total Bilirubin 0.2 AST 24 ALT 16 Alkaline Phosphatase 71 Serum Total Protein 7.6 Albumin 4.4 Globulin 3.2 Albumin/Globulin Ratio 1.4 Urine Color Yellow Urine Appearance Clear Urine pH 6.0 Ur Specific [place] <= 1.005 Urine Protein Negative Urine Glucose (UA) Negative Urine Ketones Negative Urine Blood Negative Urine Nitrite Negative Urine Bilirubin Negative Urine Urobilinogen 0.2 Ur Leukocyte Esterase Negative Urine RBC 0 Urine WBC 0 Ur Epithelial Cells 0 Urine Bacteria 0 Salicylates < 4.0 Urine Opiates Screen Acetaminophen < 10.0 L Urine Barbiturates Ur Phencyclidine Scrn U Amphetamin/Meth Scrn U Benzodiazepines Scrn U Cocaine Metab Screen U Cannabinoids Screen Ethyl Alcohol 10/28/18 05:36 Laboratory Tests 10/27/18 10/27/18 10/27/18 22:42 22:42 22:42 WBC 8.1 RBC 4.64 L Hgb 13.2 L Hct 39.0 L MCV 84.2 MCH 28.5 MCHC 33.9 RDW 13.2 Plt Count 327 MPV 8.1 Absolute Neuts (auto) 4.70 Absolute Lymphs (auto) 2.40 Absolute Monos (auto) 0.50 Absolute Eos (auto) 0.40 Absolute Basos (auto) 0.00 Neutrophils % 58.3 Lymphocytes % 30.2 Monocytes % 5.8 Eosinophils % 5.1 H Basophils % 0.6 Sodium Potassium Chloride Carbon Dioxide Anion Gap BUN Creatinine BUN/Creatinine Ratio Random Glucose Serum Osmolality Calcium Total Bilirubin AST ALT Alkaline Phosphatase Serum Total Protein Albumin Globulin Albumin/Globulin Ratio Urine Color Urine Appearance Urine pH Ur Specific [place] Urine Protein Urine Glucose (UA) Urine Ketones Urine Blood Urine Nitrite Urine Bilirubin Urine Urobilinogen Ur Leukocyte Esterase Urine RBC Urine WBC Ur Epithelial Cells Urine Bacteria Salicylates Urine Opiates Screen Negative Acetaminophen Urine Barbiturates Negative Ur Phencyclidine Scrn Negative U Amphetamin/Meth Scrn Negative U Benzodiazepines Scrn Negative U Cocaine Metab Screen Negative U Cannabinoids Screen Negative Ethyl Alcohol 267.90 H* 10/27/18 10/27/18 10/28/18 23:00 23:01 02:45 WBC RBC Hgb Hct MCV MCH MCHC RDW Plt Count MPV Absolute Neuts (auto) Absolute Lymphs (auto) Absolute Monos (auto) Absolute Eos (auto) Absolute Basos (auto) Neutrophils % Lymphocytes % Monocytes % Eosinophils % Basophils % Sodium 138 Potassium 3.8 Chloride 108 Carbon Dioxide 20 L Anion Gap 13.8 BUN 14 Creatinine 0.97 BUN/Creatinine Ratio 14.4 Random Glucose 95 Serum Osmolality 276.0 Calcium 9.0 Total Bilirubin 0.2 AST 24 ALT 16 Alkaline Phosphatase 71 Serum Total Protein 7.6 Albumin 4.4 Globulin 3.2 Albumin/Globulin Ratio 1.4 Urine Color Yellow Urine Appearance Clear Urine pH 6.0 Ur Specific [place] <= 1.005 Urine Protein Negative Urine Glucose (UA) Negative Urine Ketones Negative Urine Blood Negative Urine Nitrite Negative Urine Bilirubin Negative Urine Urobilinogen 0.2 Ur Leukocyte Esterase Negative Urine RBC 0 Urine WBC 0 Ur Epithelial Cells 0 Urine Bacteria 0 Salicylates < 4.0 Urine Opiates Screen Acetaminophen < 10.0 L Urine Barbiturates Ur Phencyclidine Scrn U Amphetamin/Meth Scrn U Benzodiazepines Scrn U Cocaine Metab Screen U Cannabinoids Screen Ethyl Alcohol 160.20 H* CLINICAL HISTORY: seizure COMPARISON: None. TECHNIQUE: CT CERVICAL SPINE WITHOUT IV CONTRAST on 10/28/2018 2:43 AM CDT This exam was performed according to our departmental dose-optimization program, which includes automated exposure control, adjustment of the mA and/or kV according to patient size and/or use of iterative reconstruction technique. FINDINGS: There is no acute fracture. Alignment is anatomic. Disc spaces are maintained. Vertebral body heights are preserved. Soft tissues are unremarkable. IMPRESSION: No acute fracture or subluxation. Electronically signed by: Kamar Wells MD 10/28/2018 5:16 AM CDT CLINICAL HISTORY: seizure COMPARISON: None. TECHNIQUE: CT HEAD WITHOUT IV CONTRAST on 10/28/2018 2:43 AM CDT This exam was performed according to our departmental dose-optimization program, which includes automated exposure control, adjustment of the mA and/or kV according to patient size and/or use of iterative reconstruction technique. FINDINGS: There is no acute hemorrhage, mass effect or midline shift. Silver-white differentiation is preserved. There is no hydrocephalus. There is no significant volume loss for age. The calvarium is intact. Orbits and globes are unremarkable. There is partial opacification of the ethmoid air cells. There is thickening of the posterior maxillary sinuses. Mastoid air cells are clear. IMPRESSION: No acute intracranial findings. Electronically signed by: Kamar Wells MD 10/28/2018 5:16 AM CDT 10/28/18 06:46 labs and imaging grossly unremarkable d/c home 10/28/18 06:56 Discharge pending sobriety, signed out to Dr. Kaur <Arnaldo Gutierrez - Last Filed: 10/28/18 06:56> - Progress Progress: 10/28/18 07:47 Pt eloped from ED. He was awaiting a ride from family and told he could not drive due to intoxication, but eloped without informing staff. PD notified. <Olayinka Kaur - Last Filed: 10/28/18 07:50> Departure <Arnaldo Gutierrez - Last Filed: 10/28/18 06:56> - Departure Time of Disposition: 07:49 <Olayinka Kaur - Last Filed: 10/28/18 07:50> - Departure Clinical Impression: Eloped from emergency department, Alcohol use with intoxication Disposition: Left Against Medical Advice Health Concerns: Guarded Departure Forms: ED Discharge - Pt. Copy, Patient Portal Self Enrollment Home Medications: Ambulatory Orders Cephalexin Monohydrate [Keflex] 500 mg PO Q8H #30 cap 12/05/17 Tramadol HCl 50 mg PO Q8HR PRN #20 tab 12/05/17
[2018-10-27] MEDS ORDERED: MULTIPLE VITAMIN 10 ML VIAL ONE ×2 (23:18→23:25)
[2018-10-27] MEDS: MULTIPLE VITAMIN INJ 10 ML, THIAMINE HCL INJ 100 MG in SODIUM CHLORIDE 0.9% 1000ML 1,00... IVS ONE (23:31)
[2018-10-28] MEDS: SODIUM CHLORIDE 0.9% 1000ML 1,000 ML IVS ONE (03:39)
--- NOTE | 2018-10-28 05:17 | CT ---
CLINICAL HISTORY: seizure COMPARISON: None. TECHNIQUE: CT CERVICAL SPINE WITHOUT IV CONTRAST on 10/28/2018 2:43 AM CDT This exam was performed according to our departmental dose-optimization program, which includes automated exposure control, adjustment of the mA and/or kV according to patient size and/or use of iterative reconstruction technique. FINDINGS: There is no acute fracture. Alignment is anatomic. Disc spaces are maintained. Vertebral body heights are preserved. Soft tissues are unremarkable. IMPRESSION: No acute fracture or subluxation. Electronically signed by: Kamar Wells MD 10/28/2018 5:16 AM CDT
--- NOTE | 2018-10-28 05:18 | CT ---
CLINICAL HISTORY: seizure COMPARISON: None. TECHNIQUE: CT HEAD WITHOUT IV CONTRAST on 10/28/2018 2:43 AM CDT This exam was performed according to our departmental dose-optimization program, which includes automated exposure control, adjustment of the mA and/or kV according to patient size and/or use of iterative reconstruction technique. FINDINGS: There is no acute hemorrhage, mass effect or midline shift. Silver-white differentiation is preserved. There is no hydrocephalus. There is no significant volume loss for age. The calvarium is intact. Orbits and globes are unremarkable. There is partial opacification of the ethmoid air cells. There is thickening of the posterior maxillary sinuses. Mastoid air cells are clear. IMPRESSION: No acute intracranial findings. Electronically signed by: Kamar Wells MD 10/28/2018 5:16 AM CDT
[2018-10-28 06:08] VITALS: BP 106/63; O2SAT 95
== END 2018-10-28 07:00 | disposition left against medical advice (07) ==
LOC: ER 22:30
DX: F10.220 Alcohol dependence with intoxication, uncomplicated (principal); R56.9 Unspecified convulsions; I51.9 Heart disease, unspecified; Z53.29 Procedure and treatment not carried out because of patient's decision for other reasons; Z87.891 Personal history of nicotine dependence
CPT/HCPCS: 70450; 72125; 80053; 80307; 80320; 80329; 81001; 85025; J2060; J3411; J7030

== ENCOUNTER 2019-07-13 23:56 | Emergency (ER) | payer OTHER ==
[2019-07-13] MEDS ORDERED: FOLIC ACID INJ 5 MG/ML VIAL IV ONE (23:58)
[2019-07-13] MEDS ORDERED: SODIUM CHLORIDE 0.9% 1000ML 1,000 ML IVS ONE (23:58)
[2019-07-13] MEDS ORDERED: ASPIRIN TABLET 325 MG TAB PO ONE (23:58)
[2019-07-14 00:07] VITALS: TEMP 97.9
[2019-07-14] MEDS ORDERED: THIAMINE HCL INJ 100 MG/ML VIAL ONE (00:09)
--- NOTE | 2019-07-14 00:52 | RAD ---
EXAM: XR Chest, 1 View CLINICAL HISTORY: The patient is 49 years old and is Male; chest pain TECHNIQUE: Frontal view of the chest. COMPARISON: Chest radiograph October 01, 2017 FINDINGS: LUNGS: Unremarkable. No consolidation. PLEURAL SPACE: Unremarkable. No pneumothorax. HEART: Unremarkable. No cardiomegaly. MEDIASTINUM: Unremarkable. BONES/JOINTS: Unremarkable. IMPRESSION: No acute cardiopulmonary process. Electronically signed by: Lalita Vinson MD 07/14/2019 12:50 AM CDT
[2019-07-14 02:06] VITALS: O2SAT 97
--- NOTE | 2019-07-14 03:45 | ED.PDOC ---
History of Present Illness - General Chief Complaint: Neuro Symptoms/Deficits Stated Complaint: left chest wall pain, "heat seizures" Time Seen by Provider: 07/13/19 23:57 Source: patient Exam Limitations: no limitations - History of Present Illness Initial Comments: The patient is a 49-year-old male presented emergency room secondary to apparently having had 1 of his epileptic events about an hour prior to arrival along with the patient having some left-sided chest pain for 5 hours prior to arrival. Discomfort and symptoms seem to have started when the patient had been out working on a vehicle with a friend for quite some time in the heat. The patient apparently had a generalized seizure that was witnessed. Duration is unknown. The patient is currently drowsy but alert and oriented x4. No focal neurological deficits. Patient is obviously intoxicated as he has been drinking beer. Chest pain is reproducible with palpation along the pectoralis muscle on the left. No shortness of breath. Vital signs are stable. No evidence of current seizure activity. Timing/Duration: unsure Severity: moderate Improving Factors: immobilization Worsening Factors: movement Associated Symptoms: chest pain, malaise Allergies/Adverse Reactions: Allergies NO KNOWN ALLERGY Allergy (Verified 07/14/19 00:07) Home Medications: Ambulatory Orders NK 07/14/19 Review of Systems - Review of Systems Constitutional: States: malaise EENTM: States: no symptoms reported Respiratory: States: no symptoms reported Cardiology: States: chest pain Gastrointestinal/Abdominal: States: no symptoms reported Genitourinary: States: no symptoms reported Musculoskeletal: States: see HPI Skin: States: no symptoms reported Neurological: States: see HPI, seizure Endocrine: States: no symptoms reported, intolerance to heat All other Systems: No Change from Baseline Past Medical History (General) - Patient Medical History Hx Seizures: Yes - "heat seizure" Hx Stroke: No Hx Dementia: No Hx Asthma: No Hx of COPD: No Hx Cardiac Disorders: Yes - "bad heart" Hx Congestive Heart Failure: No Hx Pacemaker: No Hx Hypertension: No Hx Thyroid Disease: No Hx Diabetes: No Hx Gastroesophageal Reflux: No Hx Renal Disease: No Hx Cancer: No Hx of HIV: No Hx Hepatitis C: No Hx MRSA: No Surgical History: other - Vaccination History Hx Tetanus, Diphtheria Vaccination: - unknown Hx Influenza Vaccination: - unknown Hx Pneumococcal Vaccination: - unknown - Social History Hx Tobacco Use: Yes Hx Chewing Tobacco Use: Yes Hx Alcohol Use: Yes Hx Substance Use: No Hx Substance Use Treatment: No Hx Depression: No Hx Physical Abuse: No Hx Emotional Abuse: No - Female History Patient : No Family Medical History - Family History Mother Family History: Unknown Living Status: Hx Cardiac Disease: Yes - dad Hx Family Cancer: Yes - dad-liver Physical Exam - Physical Exam General Appearance: Other - The patient is obviously intoxicated initially. He is alert and oriented x4. Gait is unsteady. Eye Exam: bilateral normal Ears, Nose, Throat: hearing grossly normal, normal ENT inspection Neck: non-tender, supple Respiratory: lungs clear, normal breath sounds, no respiratory distress, no accessory muscle use Cardiovascular/Chest: normal peripheral pulses, regular rate, rhythm, no edema Peripheral Pulses: radial,right: 2+, radial,left: 2+ Gastrointestinal/Abdominal: non tender, soft Rectal Exam: deferred Back Exam: no CVA tenderness, no vertebral tenderness Extremity: non-tender, normal inspection, no pedal edema, normal capillary refill Neurologic: percher II-XII nml as tested, alert, oriented x 3, other - Obviously inebriated Skin Exam: normal color Comments: Vital Signs - 24 hr 07/13/19 07/14/19 07/14/19 23:56 01:00 02:00 Temperature 97.9 F Pulse Rate [ 93 H 71 63 monitor] Respiratory 20 14 14 Rate Blood Pressure 121/87 111/65 98/79 [Left Arm] O2 Sat by Pulse 97 95 97 Oximetry 07/14/19 03:00 Temperature Pulse Rate [ 60 monitor] Respiratory 15 Rate Blood Pressure 115/64 [Left Arm] O2 Sat by Pulse 97 Oximetry Progress - Progress Progress: 07/14/19 03:48 The patient is a 49-year-old male presented emergency room after having had another epileptic event. Event was likely triggered by mild heat exhaustion and alcohol consumption. The patient is moderately inebriated. He has received a liter of IV fluids along with thiamine and folate. No further epileptic activity after arrival. He did receive a small dose of Ativan. Chest pain at this point appears to be most likely musculoskeletal given the exam and negative heart enzymes and reassuring EKG. He does need to stretch out the chest wall muscles. Encourage reduction in alcohol intake and heat exposure to reduce during epileptic events. Keep well-hydrated. Follow-up with primary care doctor later this coming week. ER warnings are given. hair dee [id number] - Results/Orders Results/Orders: Chest x-ray appears to be without acute pathology. EKG shows normal sinus rhythm at 84 bpm. Normal axis. No ST segment or T wave changes indicative of acute ischemia. Slight delay and R wave transition in anterior leads. Normal QT interval. Laboratory Tests 07/13/19 07/13/19 07/13/19 00:01 00:01 00:01 WBC 6.8 RBC 4.64 L Hgb 13.0 L Hct 38.6 L MCV 83.1 MCH 28.1 MCHC 33.8 RDW 13.9 Plt Count 393 MPV 7.4 Absolute Neuts (auto) 4.30 Absolute Lymphs (auto) 1.80 Absolute Monos (auto) 0.40 Absolute Eos (auto) 0.20 Absolute Basos (auto) 0.10 Neutrophils % 62.9 Lymphocytes % 26.6 Monocytes % 6.3 Eosinophils % 3.3 Basophils % 0.9 PT INR PTT (SP) Sodium 139 Potassium 4.1 Chloride 107 Carbon Dioxide 21 Anion Gap 15.1 BUN 14 Creatinine 0.87 BUN/Creatinine Ratio 16.1 Random Glucose 95 Serum Osmolality 277.8 Calcium 8.9 Magnesium 2.0 Total Bilirubin 0.5 AST 21 ALT 15 Alkaline Phosphatase 66 Creatine Kinase 309 H* CK-MB (CK-2) 6.6 H* CK-MB (CK-2) % 2.14 Troponin I < 0.02 B-Natriuretic Peptide 15.7 Serum Total Protein 8.1 Albumin 4.1 Globulin 4.0 H Albumin/Globulin Ratio 1.0 L TSH 3.58 Urine Color Urine Appearance Urine pH Ur Specific [place] Urine Protein Urine Glucose (UA) Urine Ketones Urine Blood Urine Nitrite Urine Bilirubin Urine Urobilinogen Ur Leukocyte Esterase Urine RBC Urine WBC Ur Epithelial Cells Urine Bacteria Urine Opiates Screen Urine Barbiturates Ur Phencyclidine Scrn U Amphetamin/Meth Scrn U Benzodiazepines Scrn U Cocaine Metab Screen U Cannabinoids Screen Ethyl Alcohol 07/13/19 07/13/19 07/14/19 00:01 01:35 00:01 WBC RBC Hgb Hct MCV MCH MCHC RDW Plt Count MPV Absolute Neuts (auto) Absolute Lymphs (auto) Absolute Monos (auto) Absolute Eos (auto) Absolute Basos (auto) Neutrophils % Lymphocytes % Monocytes % Eosinophils % Basophils % PT 10.3 INR 1.04 PTT (SP) 27.3 Sodium Potassium Chloride Carbon Dioxide Anion Gap BUN Creatinine BUN/Creatinine Ratio Random Glucose Serum Osmolality Calcium Magnesium Total Bilirubin AST ALT Alkaline Phosphatase Creatine Kinase CK-MB (CK-2) CK-MB (CK-2) % Troponin I B-Natriuretic Peptide Serum Total Protein Albumin Globulin Albumin/Globulin Ratio TSH Urine Color Urine Appearance Urine pH Ur Specific [place] Urine Protein Urine Glucose (UA) Urine Ketones Urine Blood Urine Nitrite Urine Bilirubin Urine Urobilinogen Ur Leukocyte Esterase Urine RBC Urine WBC Ur Epithelial Cells Urine Bacteria Urine Opiates Screen Negative Urine Barbiturates Negative Ur Phencyclidine Scrn Negative U Amphetamin/Meth Scrn Negative U Benzodiazepines Scrn Negative U Cocaine Metab Screen Negative U Cannabinoids Screen Negative Ethyl Alcohol 217.80 H* 07/14/19 07/14/19 01:35 03:11 WBC RBC Hgb Hct MCV MCH MCHC RDW Plt Count MPV Absolute Neuts (auto) Absolute Lymphs (auto) Absolute Monos (auto) Absolute Eos (auto) Absolute Basos (auto) Neutrophils % Lymphocytes % Monocytes % Eosinophils % Basophils % PT INR PTT (SP) Sodium Potassium Chloride Carbon Dioxide Anion Gap BUN Creatinine BUN/Creatinine Ratio Random Glucose Serum Osmolality Calcium Magnesium Total Bilirubin AST ALT Alkaline Phosphatase Creatine Kinase 269 H* CK-MB (CK-2) 5.8 H* CK-MB (CK-2) % 2.16 Troponin I < 0.02 B-Natriuretic Peptide Serum Total Protein Albumin Globulin Albumin/Globulin Ratio TSH Urine Color Yellow Urine Appearance Clear Urine pH 5.5 Ur Specific [place] <= 1.005 Urine Protein Negative Urine Glucose (UA) Negative Urine Ketones Negative Urine Blood Negative Urine Nitrite Negative Urine Bilirubin Negative Urine Urobilinogen 0.2 Ur Leukocyte Esterase Negative Urine RBC 0 Urine WBC 0 Ur Epithelial Cells 0 Urine Bacteria 0 Urine Opiates Screen Urine Barbiturates Ur Phencyclidine Scrn U Amphetamin/Meth Scrn U Benzodiazepines Scrn U Cocaine Metab Screen U Cannabinoids Screen Ethyl Alcohol - EKG/XRAY/CT CT Ordered: No Departure - Departure Clinical Impression: Strain of left pectoralis muscle Qualifiers: Encounter type: initial encounter Qualified Code(s): S29.011A - Strain of muscle and tendon of front wall of thorax, initial encounter Heat exhaustion Qualifiers: Encounter type: initial encounter Qualified Code(s): T67.5XXA - Heat exhaustion, unspecified, initial encounter Epilepsy Qualifiers: Epilepsy type: other generalized Intractability: not intractable Status epilepticus: without status epilepticus Qualified Code(s): G40.409 - Other generalized epilepsy and epileptic syndromes, not intractable, without status epilepticus Acute alcohol intoxication Qualifiers: Complication of substance-induced condition: with unspecified complication Qual ified Code(s): F10.929 - Alcohol use, unspecified with intoxication, unspecified Disposition: Discharge to Home or Self Care Condition: Fair Departure Forms: ED Discharge - Pt. Copy, Patient Portal Self Enrollment Instructions: Heat Stroke, Chest Pain That Is Not Caused by the Heart (DC), Alcohol Abuse and Alcoholism (DC) Diet: regular diet Activity: increase activity as tolerated, other - Epilepsy restrictions Home Medications: Ambulatory Orders NK 07/14/19 Additional Instructions: The patient is a 49-year-old male presented emergency room after having had another epileptic event. Event was likely triggered by mild heat exhaustion and alcohol consumption. The patient is moderately inebriated. He has received a liter of IV fluids along with thiamine and folate. No further epileptic activity after arrival. He did receive a small dose of Ativan. Chest pain at this point appears to be most likely musculoskeletal given the exam and negative heart enzymes and reassuring EKG. He does need to stretch out the chest wall muscles. Encourage reduction in alcohol intake and heat exposure to reduce during epileptic events. Keep well-hydrated. Follow-up with primary care doctor later this coming week. ER warnings are given.
[2019-07-14 04:05] VITALS: BP 109/65
[2019-07-14] MEDS ORDERED: THIAMINE HCL INJ 100 MG/ML VIAL IV ONE (23:58)
== END 2019-07-14 04:05 | disposition home or self-care (01) ==
LOC: ER 23:56
DX: S29.011A Strain of muscle and tendon of front wall of thorax, initial encounter (principal); T67.5XXA Heat exhaustion, unspecified, initial encounter; R07.89 Other chest pain; G40.409 Other generalized epilepsy and epileptic syndromes, not intractable, without status epilepticus; Z82.49 Family history of ischemic heart disease and other diseases of the circulatory system; F17.200 Nicotine dependence, unspecified, uncomplicated; F10.929 Alcohol use, unspecified with intoxication, unspecified; X58.XXXA Exposure to other specified factors, initial encounter; Y92.9 Unspecified place or not applicable
CPT/HCPCS: 71045; 80053; 80307; 80320; 81001; 82550; 82553; 83735; 83880; 84443; 84484; 85025; 85610; 85730; 93005; J2060; J3411; J7030

== ENCOUNTER 2019-12-16 23:00 | Emergency (ER) | payer MEDICAID, OTHER ==
--- NOTE | 2019-12-16 23:34 | ED.PDOC ---
History of Present Illness - General Chief Complaint: Lower Extremity Injury Stated Complaint: right leg pain Time Seen by Provider: 12/16/19 23:00 Source: patient, RN notes reviewed, old records Exam Limitations: no limitations - History of Present Illness Initial Comments: 49 yo male at work when bull kicked metal gate into his right lower leg. 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 no other injuries. Allergies/Adverse Reactions: Allergies NO KNOWN ALLERGY Allergy (Verified 12/16/19 23:53) Home Medications: Ambulatory Orders Acetaminophen W/ Codeine [Tylenol W/ CODEINE #3] 1 ea PO TID PRN #9 ea 12/17/19 Ibuprofen 600 mg PO QID PRN #30 tab 12/17/19 Review of Systems - Review of Systems Constitutional: Denies: chills, fever EENTM: Denies: blurred vision, throat pain, mouth pain Respiratory: Denies: cough, short of breath Cardiology: Denies: chest pain, palpitations Gastrointestinal/Abdominal: Denies: abdominal pain, diarrhea Genitourinary: Denies: discharge, hematuria Musculoskeletal: States: joint pain, joint swelling, muscle pain Neurological: Denies: headache, numbness, paresthesia, weakness Endocrine: Denies: unexplained weight gain, unexplained weight loss Hematologic/Lymphatic: Denies: blood clots, easy bleeding, easy bruising Past Medical History (General) - Patient Medical History Hx Seizures: Yes - "heat seizure" Hx Stroke: No Hx Dementia: No Hx Asthma: No Hx of COPD: No Hx Cardiac Disorders: Yes - "bad heart" Hx Congestive Heart Failure: No Hx Pacemaker: No Hx Hypertension: No Hx Thyroid Disease: No Hx Diabetes: No Hx Gastroesophageal Reflux: No Hx Renal Disease: No Hx Cancer: No Hx of HIV: No Hx Hepatitis C: No Hx MRSA: No - Vaccination History Hx Tetanus, Diphtheria Vaccination: - unknown Hx Influenza Vaccination: - unknown Hx Pneumococcal Vaccination: - unknown - Social History Hx Tobacco Use: Yes Hx Chewing Tobacco Use: Yes Hx Alcohol Use: Yes Hx Substance Use: No Hx Substance Use Treatment: No Hx Depression: No Hx Physical Abuse: No Hx Emotional Abuse: No - Female History Patient : No Family Medical History - Family History Mother Family History: Unknown Living Status: Hx Cardiac Disease: Yes - dad Hx Family Cancer: Yes - dad-liver Physical Exam - Physical Exam General Appearance: Alert, Comfortable, No apparent distress, Well Developed, Well Groomed, Well Hydrated, Well Nourished Eyes, Ears, Nose, Throat: PERRL/EOMI, normal ENT inspection, TMs normal Neck: non-tender, full range of motion, supple, normal inspection Cardiovascular/Respiratory: regular rate, rhythm, no M/R/G, normal peripheral pulses, no JVD, normal breath sounds, no respiratory distress Gastrointestinal/Abdominal: non-tender, no organomegaly, no hernia Back: normal inspection, no CVA tenderness, no vertebral tenderness Knee: abrasions, pain, swelling Progress - Progress Progress: 12/17/19 00:08 The data reviewed when caring for this patient included: nurse notes, prior records, etc. The history and assessments from nurses notes were reviewed and considered, and the patient's home medication list was also reviewed and considered. My assessment and the results of testing completed here in the ED were discussed with the patient/family. All questions were answered, and they express understanding of my assessment and the plan. They have been instructed to return if their symptoms worsen, and have been asked to follow up with their primary care physician to recheck today's presenting complaint. Strict return precautions given. I have reviewed medication, benefits, alternatives and side effects. Patient decided to proceed with medication. Monique Buckley DO #[id number] - EKG/XRAY/CT Xray Comments: tib/fib and knee: no acute fracture noted. Departure - Departure Clinical Impression: Knee sprain Qualifiers: Encounter type: initial encounter Involved ligament of knee: unspecified ligament Laterality: right Qualified Code(s): S83.91XA - Sprain of unspecified site of right knee, initial encounter Time of Disposition: 00:03 Disposition: Discharge to Home or Self Care Departure Forms: ED Discharge - Pt. Copy, Patient Portal Self Enrollment Instructions: DI for Leg Pain, Knee Sprain (DC), Ligament Injuries in the Knee (DC), Internal Derangement of the Knee (DC) Diet: resume usual diet Activity: increase activity as tolerated Referrals: Olayinka Correa MD [Active Staff] - 1 Week Prescriptions: Ibuprofen 600 mg PO QID PRN #30 tab PRN Reason: Pain Acetaminophen W/ Codeine [Tylenol W/ CODEINE #3] 1 ea PO TID PRN #9 ea PRN Reason: Pain Home Medications: Ambulatory Orders Acetaminophen W/ Codeine [Tylenol W/ CODEINE #3] 1 ea PO TID PRN #9 ea 12/17/19 Ibuprofen 600 mg PO QID PRN #30 tab 12/17/19 Additional Instructions: If pain continues you may need an MRI, follow up with your doctor in one week or sooner if needed.
[2019-12-16] MEDS ORDERED: HYDROcodone 5MG/APAP 325MG 1 EA TAB PO ONE (23:48)
[2019-12-16 23:53] VITALS: TEMP 98; O2SAT 99
--- NOTE | 2019-12-17 | RAD ---
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 FINDINGS: 2 X-ray views of the right tibia and fibula (frontal and lateral) were performed. No areas of acute bony injuries were demonstrated. No gross articular or soft tissue abnormality is identified. There are no gross intraosseous lesions. No periosteal reaction were seen. No radiopaque foreign body is identified. IMPRESSION: NO EVIDENCE FOR FRACTURE OR DISLOCATION AT THE RIGHT TIBIA AND FIBULA. Electronically signed by: Raymond Matthews MD 12/16/2019 11:59 PM DEPUTY SHERIFF GENERALIST
--- NOTE | 2019-12-17 00:01 | RAD ---
EXAM DESCRIPTION: Knee,Right Complete 12/16/2019 11:59 PM SUB PLANT MANAGER CLINICAL HISTORY: 49 years, Male, gate injury,knee pain COMPARISON: None. FINDINGS: 2 X-ray views of the right knee (frontal lateral and cross lateral table) were performed. There is no evidence for fracture or dislocation. There are no gross intraosseous lesions. No gross articular abnormality is identified. There is no periostitis. Minimal density within the skin/surface of the suprapatellar area corresponding to most likely clothing limiting diagnosis. There is questionable small suprapatellar effusion IMPRESSION: QUESTIONABLE SMALL SUPRAPATELLAR EFFUSION. NO EVIDENCE FOR FRACTURE OR DISLOCATION AT THE RIGHT KNEE. Electronically signed by: Raymond Matthews MD 12/17/2019 12:00 AM SUB PLANT MANAGER
[2019-12-17 00:09] VITALS: BP 127/66
== END 2019-12-17 00:22 | disposition home or self-care (01) ==
LOC: ER 23:00
DX: S83.91XA Sprain of unspecified site of right knee, initial encounter (principal); I51.9 Heart disease, unspecified; W22.8XXA Striking against or struck by other objects, initial encounter; Y99.0 Civilian activity done for income or pay; Y92.71 Barn as the place of occurrence of the external cause